=== PATIENT | male | born 1985 | race Caucasian/White ===

== ENCOUNTER → 2024-05-29 11:27 | Outpatient (REF) | payer OTHER, SELFPAY | LOC: MRI 3T 11:27 | PROVIDERS: ATTENDING PHYSICIAN Physician Assistant Medical | DX: R55 Syncope and collapse (principal) | CPT/HCPCS: 70551 ==

== ENCOUNTER → 2024-06-14 12:51 | Outpatient (REF) | payer OTHER, SELFPAY | LOC: HWRCS 12:51 | PROVIDERS: ATTENDING PHYSICIAN Internal Medicine Cardiovascular Disease; FAMILY PHYSICIAN Physician Assistant Medical | DX: I10 Essential (primary) hypertension (principal) | CPT/HCPCS: 93306 ==

== ENCOUNTER → 2025-09-12 09:15 | Outpatient (REF) | payer OTHER, SELFPAY | LOC: RAD 09:15 | PROVIDERS: ATTENDING PHYSICIAN Internal Medicine Cardiovascular Disease; FAMILY PHYSICIAN Physician Assistant Medical | DX: Q23.1 Congenital insufficiency of aortic valve (principal) | CPT/HCPCS: 71270; Q9967 ==